=== PATIENT | female | born 1945 | race Caucasian/White ===

== ENCOUNTER 2017-10-06 23:17 | Observation (INO) ==
[2017-10-06] MEDS ORDERED: LACTATED RINGERS 1,000 ML IV ONE ×2 (23:30→23:53)
[2017-10-07 00:42] LABS: Basophils # (Auto) 0 K/mcL (0.0-0.3); Basophils % (Auto) 0 % (0.0-2.0); Eosinophils # (Auto) 0.1 K/mcL (0.0-0.7); Eosinophils % (Auto) 0.8 % (0.0-7.0); Granulocytes % (Auto) 95.3 % (38.0-78.0); Lymphocytes # (Auto) 0.3 K/mcL (1.5-4.8); Lymphocytes % (Auto) 2.8 % (15.5-49.0); Mean Corpuscular HGB Conc 34.5 g/dL (31.0-36.0); Mean Corpuscular Hemoglobin 29.7 pg (26.0-34.0); Monocytes # (Auto) 0.1 K/mcL (0.1-0.9); Monocytes % (Auto) 1.1 % (1.0-12.0); Platelet Count 243 K/mcL (140-440); RBC 4.04 M/mcL (4.00-5.20); Red Cell Distribution Width 13.8 % (11.5-14.5)
[2017-10-07 01:05] LABS: ALT/SGPT 144 U/l (0-40); Albumin 2.7 gm/dL (3.2-5.2); Albumin/Globulin Ratio 0.9 (1.0-2.3); Alkaline Phosphatase 86 U/L (39-117); Blood Urea Nitrogen 39 mg/dl (8-23)
--- NOTE | 2017-10-07 01:24 | Emergency Department Note ---
Nausea/Vomiting/Diarrhea HPI - General Chief complaint: Nausea/Vomiting/Diarrhea Stated complaint: nausea, vomitting, diarrhea Time Seen by Provider: 10/06/17 23:30 Source: patient Mode of arrival: ambulatory Limitations: no limitations - History of Present Illness HPI Narrative: This patient was positive for influenza a couple weeks ago and has been fighting this for the last 2 weeks and comes in tonight dehydrated with nausea vomiting and diarrhea. After many hours here we finally determined that she is C. difficile positive. Her blood pressure has been quite low through the night. She has received 3 L of saline. - Related Data Home Medications Medication Instructions Recorded Confirmed Levothyroxine Unknown Strengt 09/07/17 Dicyclomine HCl [Bentyl] 10 mg PO QID 10/06/17 10/06/17 Previous Rx's Medication Instructions Recorded Acetaminophen W/Codeine #3 1 tab PO Q4-6HP PRN #15 tab 09/07/17 [Tylenol #3] Ondansetron HCl [Zofran ODT] 4 mg SL Q4-6HP PRN #14 tab 09/07/17 Ciprofloxacin [Cipro] 500 mg PO BID #14 tab 10/07/17 Allergies Allergy/AdvReac Type Severity Reaction Status Date / Time No Known Drug Allergies Allergy Verified 10/06/17 23:21 Review of Systems All systems ED: reviewed and negative except as stated. Past Medical History - Past Medical History Medical history: Reports: thyroid disease - Social History smoking status: Never smoker Physical Exam Limitations: no limitations General appearance: alert Head: atraumatic Eye: Present: normal appearance ENT: mucous membranes dry Neck: Present: normal inspection Chest: Present: normal inspection Respiratory: Present: normal lung sounds bilaterally Cardiovascular: Present: regular rate, normal rhythm, normal heart sounds Abdominal: Present: soft. Absent: distention, tenderness Neurological: Present: alert Psychiatric: Present: normal affect, normal mood Skin: Present: warm, dry, intact Course Vital Signs Temperature 98.6 F 10/06/17 23:18 Pulse Rate 78 10/06/17 23:18 Respiratory Rate 20 10/06/17 23:18 Blood Pressure 97/63 10/06/17 23:18 Pulse Oximetry (%) 100 10/06/17 23:18 Temperature 98.6 F 10/06/17 23:18 Pulse Rate 64 10/07/17 06:03 Respiratory Rate 17 10/07/17 06:03 Blood Pressure 93/56 10/07/17 06:01 Pulse Oximetry (%) 97 10/07/17 06:03 Nausea/Vomiting/Diarrhea - [facility] Narrative Medical decision making narrative: Patient's lab work indicates dehydration. Stool was positive for C. difficile. We will admit her observation for continued hydration and treatment. She did have a minor UTI and we initially tried to give her some Levaquin before the C. difficile was back. She developed some red streaks from it so that was stopped. - Lab Data Lab results reviewed: Yes I reviewed the patient's lab results. Result diagrams: 10/06/17 23:34 10/06/17 23:34 Lab Results 10/06/17 10/06/17 10/07/17 Range/Units 23:34 23:34 02:02 WBC 11.4 H (4.5-11.0) K/mcL RBC 4.04 (4.00-5.20) M/mcL Hgb 12.0 (12.0-15.0) g/dL Hct 34.7 L (36.0-48.0) % MCV 86.0 (80.0-100.0) fL MCH 29.7 (26.0-34.0) pg MCHC 34.5 (31.0-36.0) g/dL RDW 13.8 (11.5-14.5) % Plt Count 243 (140-440) K/mcL MPV 9.1 (7.4-10.4) fL Gran % 95.3 H (38.0-78.0) % Lymph % (Auto) 2.8 L (15.5-49.0) % [place] % (Auto) 1.1 (1.0-12.0) % Eos % (Auto) 0.8 (0.0-7.0) % Baso % (Auto) 0 (0.0-2.0) % Gran # 10.9 H (1.8-8.0) K/mcL Lymph # (Auto) 0.3 L (1.5-4.8) K/mcL [place] # (Auto) 0.1 (0.1-0.9) K/mcL Eos # (Auto) 0.1 (0.0-0.7) K/mcL Baso # (Auto) 0 (0.0-0.3) K/mcL Differential Comment (()) Sodium 127 L (133-145) mmol/L Potassium 4.2 (3.3-5.1) mmol/L Chloride 90 L (96-108) mmol/L Carbon Dioxide 20 L (22-30) mmol/L Anion Gap 17.0 H (8-16) BUN 39 H (8-23) mg/dl Creatinine 1.1 (0.6-1.1) mg/dl GFR Calculation 51 Glucose 135 H (70-105) mg/dL Calcium 7.4 L (8.6-10.4) mg/dl Total Bilirubin 1.3 H (0.0-1.0) mg/dL AST 144 H (0-37) U/l ALT 144 H (0-40) U/l Alkaline Phosphatase 86 (39-117) U/L Total Protein 5.7 L (5.9-8.4) gm/dL Albumin 2.7 L (3.2-5.2) gm/dL Globulin 3.0 (2.2-3.7) gm/dL Albumin/Globulin Ratio 0.9 L (1.0-2.3) Urine Color Zelda Urine Appearance Cloudy Urine pH 5.0 (5.0-9.0) Ur Specific [place] 1.024 (1.000-1.035) Urine Protein 100 A (NEG) mg/dL Urine Glucose (UA) Negative (NEG) mg/dL Urine Ketones Neg (NEG) mg/dL Urine Occult Blood 0.03 A (<0.03) mg/dL Urine Nitrate Neg (NEG) Urine Bilirubin Neg (NEG) mg/dL Urine Urobilinogen 4.0 A (NEG) mg/dL Ur Leukocyte Esterase 250 A (NEG) /uL Urine RBC 2 H (0-1) /hpf Urine WBC 15 H (0-4) /hpf Ur Squamous Epith Cells 2 (0-4) /hpf Ur Transition Epith Cell 2 (0-2) /hpf Urine Bacteria Few A (0) /hpf Hyaline Casts 21 H (0-2) /lpf Granular Casts 6 H (0) /lpf Ur Culture Indicated? Yes Disposition Pt seen by TRANSCRIPT EVALUATOR/PA only: No Clinical Impression: Gastroenteritis, Urinary tract infection, Clostridium difficile infection Disposition: Xfer As Outpt/Obs ([facility]) Condition: Good Instructions: Urinary Tract Infection in Women (ED), Gastroenteritis (ED) Prescriptions: Ciprofloxacin [Cipro] 500 mg PO BID #14 tab Referrals: Hermelinda Barnes MD [Primary Care Provider] - Time of Disposition: 01:23
[2017-10-07] MEDS ORDERED: LACTATED RINGERS 1,000 ML IV ONE (02:22)
[2017-10-07 03:49] LABS: Appearance,Urine CLOUDY; Bacteria,Urine FEW /hpf (0); Bilirubin,Urine NEG (NEG); Color,Urine AMBER; Glucose,Urine (UA) NEGATIVE (NEG); Leukocyte Esterase,Urine 250 /uL (NEG); Protein,Urine 100 mg/dL (NEG); Specific Gravity,Urine 1.024 (1.000-1.035); Urine Blood 0.03 mg/dL (<0.03); Urine Granular Cast 6 /lpf (0); Urine Hyaline Cast 21 /lpf (0-2); Urine RBC 2 /hpf (0-1); Urine Squamous Epithelial Cell 2 /hpf (0-4); Urine Transitional Epi Cells 2 /hpf (0-2); Urine WBC 15 /hpf (0-4)
[2017-10-07] MEDS ORDERED: LEVOFLOXACIN 750 MG/150 ML BAG IV ONE (03:55)
[2017-10-07] MEDS ORDERED: metroNIDAZOLE 500 MG TABLET PO ONE (04:52)
[2017-10-07] MEDS ORDERED: diphenhydrAMINE 25 MG CAPSULE PO ONE (05:28)
[2017-10-07] MEDS ORDERED: diphenhydrAMINE 25 MG CAPSULE ONE (05:40)
[2017-10-07] MEDS ORDERED: ACETAMINOPHEN 325 MG TABLET PO PRN (09:28)
[2017-10-07] MEDS ORDERED: ONDANSETRON 4 MG/2 ML VIAL IV PRN (09:28)
--- NOTE | 2017-10-07 10:04 | Internal Med History&Physical ---
Medical - H&P: HPI Patient information: Note initiated : 10/07/17 at 9:59 am Service Date, if different from initiated Date: [] Patient: Randi Schofield 71 y/o F admitted on 10/07/17 for N/V/D. Chief Complaint: diarrhea, nausea History of present illness: The patient's external female history of hypothyroidism presents with ongoing diarrhea, nausea for about the last 2 weeks. She was seen at this facility on September 07 with influenza-like symptoms and was diagnosed with influenza based on nasal swab. She states initially she has been sick ever since. However on further questioning, it appears she continued to have fevers chills and body aches then started to feel better. For at least the last 2 weeks she has subsequently developed diarrhea. She is also felt overall malaise, decreased oral intake, decreased appetite. She continues to have loose stools and crampy abdominal pain along with some nausea but no emesis. She has tried Imodium as well as Pepto-Bismol without effect. She presents to the ED late yesterday evening with these symptoms. Blood pressure was on the low side, she received fluids. Evaluation revealed mild leukocytosis at 11,000 with evidence of a urinary tract infection. She also had an elevated BUN consistent with dehydration. Due to the diarrhea, stool studies were sent, she comes back positive for C. difficile. She received a dose of metronidazole in the ED, however still is generally weak, not taking good oral intake and still appears dehydrated as being hospitalized for further fluids and supportive care. Patient's also had influenza, he recovered. He has not had any diarrheal illness. She has not been around anyone with similar symptoms. She has had no antibiotic exposures (did receive levofloxacin in the ED early this morning for UTI). No prior history of C. difficile. She does not use a PPI. She Complains of feeling feverish at times, loose stools, crampy abdominal pain , nausea. Myalgias tend to resolve. She feels generally weak. She's had no headache, vision changes, cough, sputum production, chest pain. She's had no dysuria. All systems: reviewed and no additional remarkable complaints except as stated Medical - H&P: PMH Medical history: Thyroid cancer, status post thyroidectomy Depression Surgical history: Status post thyroidectomy Pertinent family history: Patient's brother has had a stroke. Mother at age 99 of age-related causes. No history of GI illness. Social history: The patient lives with her . She does not smoke tobacco. She has a rare alcoholic drink. Medical - H&P: Meds Home Medications Medication Instructions Recorded Confirmed Type Acetaminophen W/Codeine #3 1 tab PO Q4-6HP PRN #15 tab 09/07/17 Rx [Tylenol #3] Levothyroxine Unknown Strengt 09/07/17 History Ondansetron HCl [Zofran ODT] 4 mg SL Q4-6HP PRN #14 tab 09/07/17 Rx Dicyclomine HCl [Bentyl] 10 mg PO QID 10/06/17 10/06/17 History Ciprofloxacin [Cipro] 500 mg PO BID #14 tab 10/07/17 Rx Allergies Allergy/AdvReac Type Severity Reaction Status Date / Time No Known Drug Allergies Allergy Verified 10/06/17 23:21 Medical - H&P: Exam - Constitutional Vitals: Temp Pulse Resp BP Pulse Ox 98.6 F 62 15 107/52 95 10/06/17 23:18 10/07/17 08:03 10/07/17 08:03 10/07/17 08:03 10/07/17 08:03 General appearance: average body habitus, cooperative, no acute distress - Head Head exam: Present: atraumatic, normal inspection - Eye Eye exam: Present: normal appearance, PERRL - ENT ENT exam: Present: mucous membranes dry, normal oropharynx - Neck Neck exam: Present: full ROM. Absent: lymphadenopathy, meningismus - Respiratory Respiratory exam: Present: normal respiratory exam, CTAB. Absent: accessory muscle use - Cardiovascular Cardiovascular exam: Present: normal rate and rhythm. Absent: gallop, rubs, systolic murmur - GI/Abdominal GI/Abdominal exam: Present: soft, hyperactive bowel sounds, tenderness (mild diffuse tenderness). Absent: guarding, rebound, rigid - Extremities Exam Extremities exam: Present: normal inspection. Absent: joint swelling, pedal edema - Back Exam Back exam: Present: normal inspection. Absent: CVA tenderness (L), CVA tenderness (R) - Neurological Exam Neurological exam: Present: alert, CN II-XII intact, oriented X3. Absent: motor sensory deficit - Skin Skin exam: Present: dry, normal color. Absent: cyanosis, diaphoretic Medical - H&P: Reslt - Labs CBC & Chem 7: 10/06/17 23:34 10/06/17 23:34 Labs: Short CBC 10/06/17 Range/Units 23:34 WBC 11.4 H (4.5-11.0) K/mcL Hgb 12.0 (12.0-15.0) g/dL Hct 34.7 L (36.0-48.0) % Plt Count 243 (140-440) K/mcL BMP 10/06/17 23:34 Sodium 127 L Potassium 4.2 Chloride 90 L Carbon Dioxide 20 L BUN 39 H Creatinine 1.1 Glucose 135 H Calcium 7.4 L Liver Function 10/06/17 Range/Units 23:34 Total Bilirubin 1.3 H (0.0-1.0) mg/dL AST 144 H (0-37) U/l ALT 144 H (0-40) U/l Alkaline Phosphatase 86 (39-117) U/L Albumin 2.7 L (3.2-5.2) gm/dL Urine 10/07/17 Range/Units 02:02 Urine Color Zelda Urine Appearance Cloudy Urine pH 5.0 (5.0-9.0) Ur Specific [place] 1.024 (1.000-1.035) Urine Protein 100 A (NEG) mg/dL Urine Glucose (UA) Negative (NEG) mg/dL Microbiology 10/07/17 02:02 C.difficile Toxin B Gene (PCR) - Final Stool POSITIVE 10/07/17 02:02 Fecal Leukocyte Stain - Final Stool Medical - H&P: A/P (1) Clostridium difficile infection Current visit: Yes Status: Acute (2) Urinary tract infection Current visit: Yes Status: Acute - Narrative A/P Narrative: 71-year-old female 37 influenza, presents with 2 weeks of diarrhea, found to have C. difficile. C. difficile infection with associated diarrhea. Mild in severity. No evidence of sepsis. Appears to be community-acquired infection, no recent antibiotic exposures, no ill contacts. In spite of 3 L fluid, the patient still remains dehydrated-appearing, poor appetite, poor oral intake. Plan: Hospitalized in observation Continue with IV fluids Regular diet as tolerated Metronidazole 500 mg by mouth every 8 hours Urinary tract infection. She received 1 dose of levofloxacin the ED prior to the diagnosis of C. difficile. She had some red streaking associated with an infusion, which resolved. She may require antibiotic therapy for UTI, if so treatment for C. difficile will be extended to suppress during antibiotics for UTI. Plan: Follow up culture and sensitivities. Levofloxacin should be effective for at least 24 hours. She is further antibiotic therapy based upon culture results. Prophylaxis: Lovenox CODE STATUS: Full code
[2017-10-07] MEDS: 0.9 % SODIUM CHLORIDE 1,000 ML IV SCH ×2 (10:43→19:03)
[2017-10-07 11:32] LABS: Basophils # (Auto) 0 K/mcL (0.0-0.3); Basophils % (Auto) 0.2 % (0.0-2.0); Eosinophils # (Auto) 0.3 K/mcL (0.0-0.7); Eosinophils % (Auto) 4.2 % (0.0-7.0); Granulocytes % (Auto) 84.9 % (38.0-78.0); Lymphocytes # (Auto) 0.5 K/mcL (1.5-4.8); Lymphocytes % (Auto) 7.5 % (15.5-49.0); Mean Corpuscular HGB Conc 33.7 g/dL (31.0-36.0); Mean Corpuscular Hemoglobin 29.3 pg (26.0-34.0); Monocytes # (Auto) 0.2 K/mcL (0.1-0.9); Monocytes % (Auto) 3.2 % (1.0-12.0); Platelet Count 208 K/mcL (140-440); RBC 3.41 M/mcL (4.00-5.20)
[2017-10-07 11:51] LABS: ALT/SGPT 102 U/l (0-40); Albumin 1.9 gm/dL (3.2-5.2); Albumin/Globulin Ratio 0.8 (1.0-2.3); Alkaline Phosphatase 51 U/L (39-117); Blood Urea Nitrogen 25 mg/dl (8-23)
[2017-10-07] MEDS: metroNIDAZOLE 500 MG TABLET PO SCH ×2 (14:14→22:48)
[2017-10-07] MEDS: 0.9 % SODIUM CHLORIDE 10 ML SYRINGE IV SCH ×2 (14:15→22:47)
[2017-10-08] MEDS: 0.9 % SODIUM CHLORIDE 1,000 ML IV SCH ×5 (02:16→20:56)
[2017-10-08] MEDS: 0.9 % SODIUM CHLORIDE 10 ML SYRINGE IV SCH ×3 (05:19→20:57)
[2017-10-08 05:43] LABS: Mean Cell Volume 88.3 fL (80.0-100.0); Mean Corpuscular HGB Conc 33.8 g/dL (31.0-36.0); Mean Corpuscular Hemoglobin 29.8 pg (26.0-34.0); Platelet Count 239 K/mcL (140-440); RBC 3.51 M/mcL (4.00-5.20); Red Cell Distribution Width 14.6 % (11.5-14.5)
[2017-10-08 06:09] LABS: Blood Urea Nitrogen 19 mg/dl (8-23)
[2017-10-08] MEDS: metroNIDAZOLE 500 MG TABLET PO SCH ×3 (06:11→21:39)
[2017-10-08 07:42] LABS: Band Neutrophils % 5 % (0-10); Eosinophils % (Manual) 3 % (0-7); Lymphocytes % 9 % (15-49); Monocytes % (Manual) 6 % (1-12); Platelet Estimate NORMAL (NORMAL); RBC Morphology NORMAL (NORMAL); Segmented Neutrophils % 77 % (38-78)
[2017-10-08] MEDS: ENOXAPARIN 40 MG/0.4 ML SYRINGE SQ SCH (09:42)
[2017-10-08] MEDS: NITROFURANTOIN SR 100 MG CAPSULE PO SCH ×2 (12:44→20:28)
[2017-10-08] MEDS ORDERED: ALBUTEROL SULFATE 2.5 MG/3 ML NEBULIZER NEB PRN (13:53)
--- NOTE | 2017-10-08 18:35 | Internal Med Progress Note ---
Medical - PN: Subj Patient information: Note initiated : 10/08/17 at 6:31 pm Service Date, if different from initiated Date: [] Patient: Randi Schofield 71 y/o F admitted on 10/07/17 for N/V/D. Chief Complaint: f/u C diff Interval history: 2/2 For at least the last 2 weeks she has had diarrhea. She is also felt overall malaise, decreased oral intake, decreased appetite. She continues to have loose stools and crampy abdominal pain along with some nausea but no emesis. She has tried Imodium as well as Pepto-Bismol without effect. She presents to the ED late yesterday evening with these symptoms. Blood pressure was on the low side, she received fluids. Evaluation revealed mild leukocytosis at 11,000 with evidence of a urinary tract infection. She also had an elevated BUN consistent with dehydration. Due to the diarrhea, stool studies were sent, she comes back positive for C. difficile. She received a dose of metronidazole in the ED, however still is generally weak, not taking good oral intake and still appears dehydrated as being hospitalized for further fluids and supportive care. 2/3 Still feels overall malaise. Crampy abdominal pain. Frequency of bowel movements may be decreasing a bit. Only taking marginal oral intake. Remains on IV fluids. - Constitutional Vitals: Vital Signs Temp Pulse Resp BP Pulse Ox 97.6 F 68 16 109/60 95 10/08/17 15:12 10/08/17 14:11 10/08/17 15:12 10/08/17 15:12 10/08/17 15:12 Period Temp Pulse Resp BP Sys/Hernández Pulse Ox Last 24 Hr 96.5 F-101.0 F 59-88 16-20 100-148/60-71 93-97 Intake and Output 10/08/17 10/08/17 10/08/17 05:59 13:59 21:59 Intake Total 1150 / 1150 1240 / 1240 800 / 800 Output Total 200 / 200 Balance 1150 / 1150 1040 / 1040 800 / 800 Intake & Output: Intake & Output 10/08/17 10/08/17 10/08/17 05:59 13:59 21:59 Intake Total 1150 / 1150 1240 / 1240 800 / 800 Output Total 200 / 200 Balance 1150 / 1150 1040 / 1040 800 / 800 Intake: IV 1000 / 1000 1000 / 1000 Sodium Chloride 0.9% 1,000 ml @ 1000 / 1000 1000 / 1000 125 mls/hr IV .Q8H [facility] Rx#: [id number] Oral 150 / 150 240 / 240 800 / 800 Output: Void Amount 200 / 200 Other: Meal Breakfast Percent of Meal Consumed 50% # Voids 1 1 2 # Bowel Movements 1 1 3 # of times incontinent of 1 1 1 Bowels Exam: General: Mildly ill-appearing Chest: Clear Cardiovascular: Regular, no edema Abdomen: Soft, mild diffuse tenderness without guarding or rebound. Hyperactive bowel sounds. Neuro: Alert, oriented, nonfocal Medical - PN: Obj Da - Labs CBC & Chem 7: 10/08/17 04:36 10/08/17 04:36 Labs: Abnormal Lab Results 10/08/17 10/08/17 10/07/17 04:36 04:36 10:19 WBC RBC 3.51 L Hgb 10.5 L Hct 31.0 L RDW 14.6 H Gran % Lymph % (Auto) Gran # Lymph # (Auto) Lymphocytes % 9 L Sodium 132 L Chloride Carbon Dioxide Anion Gap BUN 25 H Glucose Calcium 6.8 L 6.9 L Total Bilirubin AST 103 H ALT 102 H Total Protein 4.4 L Albumin 1.9 L Albumin/Globulin Ratio 0.8 L Urine Protein Urine Occult Blood Urine Urobilinogen Ur Leukocyte Esterase Urine RBC Urine WBC Urine Bacteria Hyaline Casts Granular Casts 10/07/17 10/07/17 10/06/17 10:19 02:02 23:34 WBC RBC 3.41 L Hgb 10.0 L Hct 29.6 L RDW Gran % 84.9 H Lymph % (Auto) 7.5 L Gran # Lymph # (Auto) 0.5 L Lymphocytes % Sodium 127 L Chloride 90 L Carbon Dioxide 20 L Anion Gap 17.0 H BUN 39 H Glucose 135 H Calcium 7.4 L Total Bilirubin 1.3 H AST 144 H ALT 144 H Total Protein 5.7 L Albumin 2.7 L Albumin/Globulin Ratio 0.9 L Urine Protein 100 A Urine Occult Blood 0.03 A Urine Urobilinogen 4.0 A Ur Leukocyte Esterase 250 A Urine RBC 2 H Urine WBC 15 H Urine Bacteria Few A Hyaline Casts 21 H Granular Casts 6 H 10/06/17 23:34 WBC 11.4 H RBC Hgb Hct 34.7 L RDW Gran % 95.3 H Lymph % (Auto) 2.8 L Gran # 10.9 H Lymph # (Auto) 0.3 L Lymphocytes % Sodium Chloride Carbon Dioxide Anion Gap BUN Glucose Calcium Total Bilirubin AST ALT Total Protein Albumin Albumin/Globulin Ratio Urine Protein Urine Occult Blood Urine Urobilinogen Ur Leukocyte Esterase Urine RBC Urine WBC Urine Bacteria Hyaline Casts Granular Casts Microbiology 10/07/17 02:02 Urine Culture - Preliminary Urine - Clean Void Mid-Stream Gram negative bacillus Meds: Medications Acetaminophen (Tylenol) 650 mg PO Q6HP PRN PRN Reason: PAIN/FEVER > 101 Last Admin: 10/07/17 19:57 Dose: 650 mg Albuterol Sulfate (Ventolin) 2.5 mg NEB Q2HP PRN PRN Reason: Shortness Of Breath Last Admin: 10/08/17 14:08 Dose: 2.5 mg Enoxaparin Sodium (Lovenox) 40 mg SQ DAILY [facility] Last Admin: 10/08/17 09:42 Dose: 40 mg Sodium Chloride (Sodium Chloride 0.9%) 1,000 mls @ 125 mls/hr IV .Q8H [facility] Last Admin: 10/08/17 17:38 Dose: Not Given Metronidazole (Flagyl) 500 mg PO Q8 [facility] Last Admin: 10/08/17 13:34 Dose: 500 mg Nitrofurantoin Macrocrystals (Macrobid) 100 mg PO BID [facility] Last Admin: 10/08/17 12:44 Dose: 100 mg Ondansetron HCl (Zofran) 4 mg IV Q6HP PRN PRN Reason: Nausea And Vomiting Sodium Chloride (Saline Flush) 10 ml IV Q8 [facility] Last Admin: 10/08/17 17:37 Dose: Not Given Medical - PN: A/P - Time Spent With Patient Total time spent is greater than 50% in coordination of care (as documented) at patient's floor/unit and/or counseling patient: (1) Clostridium difficile infection Status: Acute Current Visit: Yes (2) Urinary tract infection Status: Acute Current Visit: Yes - Narrative A/P Narrative: 71-year-old female 37 influenza, presents with 2 weeks of diarrhea, found to have C. difficile. C. difficile infection with associated diarrhea. Mild in severity. No sepsis. Still with significant bowel movements in spite of metronidazole for the last 24 hours, still with crampy abdominal pain and poor oral intake. At high risk for failure with discharge, would benefit from continued monitoring IV fluids and hydration. Was profoundly dehydrated at presentation. Plan: Changed to inpatient status, continue hydration, continue Flagyl, diet as tolerated Urinary tract infection. Status post 1 dose of levofloxacin in the ED, now growing gram-negative bacillus, UTI confirmed. Macrobid started, this may have least effect on Clostridium difficile infection. We'll try to avoid fluoroquinolones. We'll likely need to extend metronidazole therapy for several days to help suppress infection while on Macrobid, then complete full course of treatment. Plan: Begin Macrobid, follow up culture and sensitivities.
[2017-10-09] MEDS: 0.9 % SODIUM CHLORIDE 1,000 ML IV SCH ×3 (01:33→09:59)
[2017-10-09] MEDS: metroNIDAZOLE 500 MG TABLET PO SCH ×2 (05:20→13:37)
[2017-10-09] MEDS: 0.9 % SODIUM CHLORIDE 10 ML SYRINGE IV SCH ×2 (05:22→13:40)
[2017-10-09] MEDS: ENOXAPARIN 40 MG/0.4 ML SYRINGE SQ SCH (09:58)
[2017-10-09] MEDS: NITROFURANTOIN SR 100 MG CAPSULE PO SCH (09:58)
--- NOTE | 2017-10-09 12:13 | Discharge Summary ---
Medical - DS: Prov Patient information: Note initiated : 10/09/17 at 12:10 pm Service Date, if different from initiated Date: [] Patient: Randi Schofield 71 y/o F admitted on 10/08/17 for N/V/D and C. diff infection. Date of admission: 10/08/17 18:30 Discharge date: 10/09/17 Primary care physician: Hermelinda Barnes Admitting clinician: Maile Tony Consults: 10/07/17 07:08 Consult to Physician [CONS] Stat Comment: Consulting Provider: Maile Tony Reason For Exam: Physician to Consult Discharging clinician: Maile Tony Medical - DS: Meds - Discharge Medications Prescriptions: metroNIDAZOLE [Flagyl] 500 mg PO Q8 #42 tab Nitrofurantoin Sr [Macrobid] 100 mg PO BID #6 cap Active and Home Medications: Home Medications Acetaminophen W/Codeine #3 [Tylenol #3] 1 tab PO Q4-6HP PRN #15 tab 09/07/17 [ Rx Confirmed 10/07/17 Last Taken Unknown] Ondansetron HCl [Zofran ODT] 4 mg SL Q4-6HP PRN #14 tab 09/07/17 [Rx Confirmed 10/07/17 Last Taken 10/06/17] Dicyclomine HCl [Bentyl] 20 mg PO QID 10/06/17 [History Confirmed 10/07/17 Last Taken 10/06/17] Ciprofloxacin [Cipro] 500 mg PO BID #14 tab 10/07/17 [Rx Last Taken Unknown] FLUoxetine HCL PO DAILY 10/07/17 [History Last Taken 10/06/17] Levothyroxine PO DAILY 10/07/17 [History Last Taken 10/06/17] Medical - DS: Hosp Hospital course: 10/07 For at least the last 2 weeks she has had diarrhea. She is also felt overall malaise, decreased oral intake, decreased appetite. She continues to have loose stools and crampy abdominal pain along with some nausea but no emesis. She has tried Imodium as well as Pepto-Bismol without effect. She presents to the ED late yesterday evening with these symptoms. Blood pressure was on the low side, she received fluids. Evaluation revealed mild leukocytosis at 11,000 with evidence of a urinary tract infection. She also had an elevated BUN consistent with dehydration. Due to the diarrhea, stool studies were sent, she comes back positive for C. difficile. She received a dose of metronidazole in the ED, however still is generally weak, not taking good oral intake and still appears dehydrated as being hospitalized for further fluids and supportive care. 2/3 Still feels overall malaise. Crampy abdominal pain. Frequency of bowel movements may be decreasing a bit. Only taking marginal oral intake. Remains on IV fluids. 2/4 Improved today, eating better. Stools are starting to firm up. Still with some abdominal discomfort though this is improved. Stable for discharge home. In summary: Patient hospitalized for C. difficile diarrhea. It been ongoing for about 2 weeks. It was associated with nausea and vomiting. Also with urinary tract infection. UTI due to pansensitive Escherichia coli. Patient will be treated with 5 day course of nitrofurantoin, which is a low risk antibiotic for exacerbating C. difficile, they continued with 10 further days of metronidazole after completion of antibiotics for full treatment of C. difficile. Discharge diagnosis: Clostridium difficile infection with diarrhea Secondary discharge diagnosis: Escherichia coli urinary tract infection - Time Spent with Patient Total time spent providing and/or coordinating discharge services: Greater than 30 minutes Medical - DS: Exam - Constitutional Vitals: Vital Signs Temp Pulse Pulse Resp BP Pulse Ox 10/09/17 11:57 97.9 F 16 118/64 94 10/09/17 07:33 97.5 F 18 122/68 95 10/09/17 04:00 97.0 F 64 18 128/70 95 10/09/17 00:00 97.0 F 74 12 110/53 97 10/08/17 18:47 97.7 F 67 20 124/80 97 10/08/17 15:12 97.6 F 16 109/60 95 10/08/17 14:11 68 18 Intake and Output 10/08/17 10/09/17 10/09/17 21:59 05:59 13:59 Intake Total 1999 / 1999 1200 / 1200 Output Total 200 / 200 Balance 1800 / 1800 1200 / 1200 Intake: IV 1000 / 1000 1000 / 1000 Sodium Chloride 0.9% 1,000 ml @ 1000 / 1000 1000 / 1000 125 mls/hr IV .Q8H [facility] Rx#: [id number] Oral 1000 / 1000 200 / 200 Output: Void Amount 200 / 200 Other: Meal 2 saltine crackers Percent of Meal Consumed 100% Feeding Ability Independent # Voids 1 1 # Bowel Movements 1 1 # of times incontinent of 1 1 Bowels Weight 132 lb 8 oz 132 lb 8 oz Additional comments: General: Laying in bed, looks comfortable today, better color Chest: Clear, no rales Cardiovascular: Regular, no edema Abdomen: Soft, mild tenderness without guarding or rebound, active bowel sounds Neuro: Alert, oriented 3, nonfocal Medical - DS: A/P - Patient/Caregiver Discharge Instructions Activity: increase activity as tolerated Diet: Regular Diet Additional Instructions: Do not return to work for 2 weeks, until antibiotics are completed. Review and follow information you have been given about Clostridium difficile diarrhea. Wash your hands frequently. Your family should wash their hands frequently, particularly if in contact with stool. Alcohol-based hand sanitizers are not effective for C. difficile. Prescriptions: metroNIDAZOLE [Flagyl] 500 mg PO Q8 #42 tab Nitrofurantoin Sr [Macrobid] 100 mg PO BID #6 cap - Problem Maintenance (1) Clostridium difficile infection Status: Acute (2) Urinary tract infection Status: Acute Qualifiers: Urinary tract infection type: site unspecified Hematuria presence: without hematuria Qualified Code(s): N39.0 - Urinary tract infection, site not specified - Follow up Plan Follow up with: Hermelinda Barnes MD [Primary Care Provider] - (1 week) Disposition: Home, Self-Care Prognosis: Good Rehab Potential: Good Overall status at discharge: patient is progressing back to baseline
== END 2017-10-09 16:00 | disposition home or self-care (01) ==
LOC: ED 23:17 → MEDSUR 23:17
PROVIDERS: ADMIT Internal Medicine; ATTEND Internal Medicine